=== PATIENT | male | born 1955 | race Caucasian/White ===

== ENCOUNTER 2017-06-18 01:50 | Observation (INO) | payer BC ==
[~2017-06-18] VITALS: Ht 188 cm; Wt 123.4 kg
[~2017-06-18 01:50] MED LIST: Antivert PO; BP MED; HCTZ; LIPITOR10 MG PO; LO-DOSE ASPIRIN81 M1 PO
[2017-06-18 02:28] LABS: HEMATOCRIT 44.4 % (38.0-50.0); HEMOGLOBIN 15.8 G/DL (12.5-16.6); MCH 33.7 PG (29.0-34.0); MCHC 35.6 G/DL (30.0-36.0); MCV 94.7 FL (86-99); PLATELET COUNT 206 K/uL (156-360); RBC DIS.WIDTH-CV 11.8 % (11.8-14.6); RBC DIS.WIDTH-SD 40.4 % (39-53); RED BLOOD COUNT 4.69 M/uL (4.00-5.50); WHITE BLOOD COUNT 8.2 K/uL (4.1-10.2)
[2017-06-18 02:38] LABS: CHLORIDE 104 mEq/L (99-109); POTASSIUM 4.1 mEq/L (3.7-5.4); SODIUM 139 mEq/L (136-147)
[2017-06-18 02:40] LABS: GLUCOSE 91 mg/dL (70-99)
[2017-06-18 02:44] LABS: GFR ESTIMATE (CALCULATED) > 59 mL/min/ (58.99-99999)
[2017-06-18 02:45] LABS: UREA NITROGEN (BUN) 20 mg/dL (9-23)
[2017-06-18 02:49] LABS: TROP-I INTERPRETATION NEGATIVE; TROPONIN-I < 0.01 ng/mL (0.0-0.30)
[2017-06-18 03:18] LABS: ALBUMIN 4.1 g/dL (3.2-4.8)
[2017-06-18 03:21] LABS: TOTAL PROTEIN 6.9 g/dL (6.4-8.3)
[2017-06-18 03:23] LABS: TOTAL BILIRUBIN 0.6 mg/dL (0.0-1.0)
[2017-06-18 03:24] LABS: ALKALINE PHOSPHATASE 55 IU/L (3-129)
[2017-06-18 03:26] LABS: AST (GOT) 19 IU/L (2-34); DIRECT BILIRUBIN 0.2 mg/dL (0.0-0.3)
[2017-06-18 03:27] LABS: ALT (GPT) 28 IU/L (3-49); LIPASE 44 U/L (1.0-51.0)
[2017-06-18] MEDS ORDERED: METOPROLOL TART50 MG PO (04:40)
[2017-06-18] MEDS ORDERED: VALSARTAN40 MG PO (04:40)
[2017-06-18] MEDS ORDERED: HYDROCHLOROTHIA25 MG PO (04:40)
[2017-06-18 05:31] VITALS: BP 138/85
[2017-06-18 09:11] VITALS: BP 135/80
[2017-06-18 09:40] LABS: HDL CHOLESTEROL 42 MG/DL (Desirable>=40); LDL CHOLESTEROL 99 mg/dL (Desirable<100); NON-HDL CHOLESTEROL 128 mg/dL (Desirable<160); TOTAL CHOLESTEROL 170 mg/dL (Desirable<200); TRIGLYCERIDES 145 MG/DL (Normal: <150)
[2017-06-18 09:43] LABS: TROP-I INTERPRETATION NEGATIVE; TROPONIN-I < 0.01 ng/mL (0.0-0.30)
[2017-06-18 11:29] VITALS: BP 122/71
[2017-06-18] MEDS ORDERED: SALINE NASAL SP45 ML BOTH NARES (12:12)
[2017-06-18] MEDS ORDERED: FLONASE16 G1 BOTH NARES (12:12)
[2017-06-18] MEDS ORDERED: ONE DAILY1 EAC3 PO (12:13)
[2017-06-18] MEDS ORDERED: VITAMIN E400 UNIT PO (12:13)
[2017-06-18] MEDS ORDERED: VITAMIN C1000 MG PO (12:13)
[2017-06-18] MEDS ORDERED: VITAMIN D31000 UNI2 PO (12:14)
[2017-06-18 12:34] LABS: D-DIMER ELISA < 150.00 ng/mLDDU (<230)
[2017-06-18 15:04] LABS: TROP-I INTERPRETATION NEGATIVE; TROPONIN-I 0.01 ng/mL (0.0-0.30)
[2017-06-18 15:45] VITALS: BP 121/66
== END 2017-06-18 17:28 | disposition home or self-care (01) ==
LOC: EME 01:50 → EDOF 04:36 → ENRESERV 04:37 → 5WEST 05:19
PROVIDERS: Hospitalist; Physician Assistant Medical
DX: R07.89 Other chest pain (principal); I10 Essential (primary) hypertension; E78.5 Hyperlipidemia, unspecified; F17.220 Nicotine dependence, chewing tobacco, uncomplicated; E66.9 Obesity, unspecified; Z68.34 Body mass index [BMI] 34.0-34.9, adult; Z79.82 Long term (current) use of aspirin; I45.19 Other right bundle-branch block; I51.7 Cardiomegaly; R94.31 Abnormal electrocardiogram [ECG] [EKG]
CPT/HCPCS: 71046; 80048; 80061; 80076; 83690; 84484; 85027; 85379; 93005; 99281; 99284; G0378; J1650